=== PATIENT | female | born 1975 | race African-American/Black ===

== ENCOUNTER 2016-08-11 09:03 | Outpatient (CLI) ==
[2013-12-17 07:37] VITALS: BMI 37.3
[2016-08-11 13:36] LABS: FLU INTERNAL QC INTERNAL QC VALID; RAPID FLU A NEGATIVE (NEGATIVE); RAPID FLU B NEGATIVE (NEGATIVE)
== END 2016-08-11 09:04 | disposition home or self-care (01) ==
LOC: LAB 09:03
PROVIDERS: ATTEND Nurse Practitioner Family
DX: J02.9 Acute pharyngitis, unspecified (principal); R50.9 Fever, unspecified
CPT/HCPCS: 87651; 87804; 87880

== ENCOUNTER 2018-02-08 11:59 | Outpatient (CLI) ==
[2013-12-17 07:37] VITALS: BMI 37.3
== END 2018-02-08 12:00 | disposition home or self-care (01) ==
LOC: RHC-LAB 11:59
PROVIDERS: ATTEND Nurse Practitioner Family
DX: I10 Essential (primary) hypertension (principal)
CPT/HCPCS: 36415; 80053; 80061; 84443; 85025